=== PATIENT | female | born 1985 | race Asian ===

== ENCOUNTER 2021-02-14 03:00 | Inpatient (IN) | payer OTHER ==
[2021-02-14] MEDS ORDERED: ELECTROLYTE-148 SOLN 1,000 ML IV SCH ×2 (03:30→14:45)
[2021-02-14 05:09] VITALS: BMI 29.0
[2021-02-14 05:37] LABS: BASO % 0.2 % (0-2.0); EOS % 1.1 % (0-4.5); HEMATOCRIT 30.7 % (32.4-45.2); HEMOGLOBIN 9.8 GM/dL (10.7-15.3); LYMPH % 25.4 % (8-40); MCH 23.7 pg (25.7-33.7); MCHC 31.9 g/dl (32.0-36.0); MEAN CELL VOLUME 74.2 fl (80-96); MEAN PLT VOLUME 8.5 fl (7.5-11.1); MONO % 7.5 % (3.8-10.2); NEUT % 65.8 % (42.8-82.8); PLATELET COUNT 267 10^3/uL (134-434); RBC 4.14 M/mm3 (3.60-5.2); RDW 15.6 % (11.6-15.6); WHITE BLOOD COUNT 8.3 K/mm3 (4.0-10.0)
[2021-02-14 05:50] LABS: INR 0.97 (0.83-1.09); PROTHROMBIN TIME (PATIENT) 11.7 SEC (9.7-13.0)
[2021-02-14 05:53] LABS: ACTIVATED PTT 25.9 SECONDS (25.2-36.5)
[2021-02-14 05:57] LABS: BLOOD UREA NITROGEN 10.5 mg/dL (7-18); CALCIUM 8.3 mg/dL (8.5-10.1)
[2021-02-14 06:01] LABS: CREATININE 0.5 mg/dL (0.55-1.3)
[2021-02-14] MEDS ORDERED: DEXTROSE 5%-LACTATED RINGERS 1,000 ML IV SCH (08:45)
[2021-02-14] MEDS ORDERED: PROMETHAZINE HCL 25 MG/1 ML VIAL IVPUSH ONE (08:47)
[2021-02-14] MEDS ORDERED: BUTORPHANOL TARTRATE 1 MG/ML VIAL IVPUSH ONE (08:47)
[2021-02-14] MEDS ORDERED: OXYTOCIN 30 UNITS in 0.9% NS 30 UNIT/500 ML INFUS.BAG IVPB ONE (12:02)
[2021-02-14] MEDS ORDERED: FENTANYL/BUPIVACAINE/NS/PF - PCEA - 50 ML DISP.SYRIN EP ONE (12:21)
[2021-02-14] MEDS ORDERED: PCA PUMP NR ONE ×2 (12:21→18:23)
[2021-02-14] MEDS ORDERED: NALOXONE HCL 0.4 MG/ML VIAL IVPUSH PRN (12:34)
[2021-02-14] MEDS ORDERED: BUPIVACAINE HCL/PF 0.25% (2.5MG/ML) 10 ML VIAL ONE (12:38)
[2021-02-14] MEDS ORDERED: FENTANYL/BUPIVACAINE/NS/PF - PCEA - 50 ML DISP.SYRIN EP SCH (12:45)
[2021-02-14] MEDS ORDERED: OXYTOCIN 30 UNITS in 0.9% NS 30 UNIT/500 ML INFUS.BAG IVPB SCH (14:45)
[2021-02-14] MEDS ORDERED: OXYTOCIN 20 UNITS in 0.9% NS 20 UNIT/1,000 ML INFUS.BAG IV ONE (17:33)
[2021-02-14] MEDS ORDERED: LIDOCAINE HCL 1% PRESERVATIVE FREE - 30ML VIAL ONE (17:46)
[2021-02-14] MEDS ORDERED: BISACODYL 10 MG SUPP.RECT RC PRN (18:17)
[2021-02-14] MEDS ORDERED: BENZOCAINE 20% 57 GM BOTTLE TP PRN (18:17)
[2021-02-14] MEDS ORDERED: BENZOCAINE 28 GM HEMORRHOIDAL OINTMENT TP PRN (18:17)
[2021-02-14] MEDS ORDERED: METHYLERGONOVINE MALEATE 0.2 MG/1 ML AMP IM PRN (18:17)
[2021-02-14] MEDS ORDERED: WITCH HAZEL 50% (TUCKS) 40 PAD/JAR PAD TP PRN (18:17)
[2021-02-14] MEDS ORDERED: OXYTOCIN 20 UNITS in 0.9% NS 20 UNIT/1,000 ML INFUS.BAG IV SCH (18:30)
[2021-02-14 19:59] LABS: CORD BASE EXCESS -8.3 mmol/L (0-2); CORD HCO3 18.3 mmHg (20-29); CORD PCO2 41.3 mmHg (30-78); CORD pH 7.264 (7.14-7.44)
[2021-02-14 20:01] LABS: CORD BASE EXCESS -9.2 mmol/L (0-2); CORD HCO3 19.8 mmHg (20-29); CORD pH 7.175 (7.14-7.44)
[2021-02-15] MEDS: ACETAMINOPHEN 325 MG TABLET (FP) PO PRN ×4 (06:31→23:44)
[2021-02-15] MEDS: IBUPROFEN 600 MG TABLET (FP) PO PRN ×4 (06:32→23:44)
[2021-02-15 07:38] LABS: BASO % 0.2 % (0-2.0); EOS % 0.4 % (0-4.5); HEMATOCRIT 30.6 % (32.4-45.2); HEMOGLOBIN 9.7 GM/dL (10.7-15.3); LYMPH % 14.4 % (8-40); MCH 23.4 pg (25.7-33.7); MCHC 31.7 g/dl (32.0-36.0); MEAN CELL VOLUME 73.8 fl (80-96); MEAN PLT VOLUME 8.5 fl (7.5-11.1); MONO % 6.6 % (3.8-10.2); NEUT % 78.4 % (42.8-82.8); PLATELET COUNT 243 10^3/uL (134-434); RBC 4.14 M/mm3 (3.60-5.2); RDW 15.9 % (11.6-15.6); WHITE BLOOD COUNT 13.6 K/mm3 (4.0-10.0)
[2021-02-15] MEDS ORDERED: DIPHTH,PERTUSS(ACELL),TET 0.5 ML DISP.SYRIN IM ONE (10:00)
[2021-02-15] MEDS: FERROUS SO4 325 MG TABLET (FP) PO SCH ×2 (10:04→17:40)
[2021-02-15] MEDS: PRENATAL VITAMINS W/ FOLIC ACID TABLET (FP) PO SCH (10:04)
[2021-02-15 12:42] LABS: POC NITRAZINE POS
[2021-02-15] MEDS ORDERED: SENNOSIDES/DOCUSATE COMBO (SENNA PLUS) TABLET (UD) PO PRN (22:00)
[2021-02-16] MEDS: IBUPROFEN 600 MG TABLET (FP) PO PRN (07:07)
[2021-02-16] MEDS: ACETAMINOPHEN 325 MG TABLET (FP) PO PRN (07:08)
[2021-02-16] MEDS: FERROUS SO4 325 MG TABLET (FP) PO SCH (07:09)
[2021-02-16] MEDS: PRENATAL VITAMINS W/ FOLIC ACID TABLET (FP) PO SCH (09:24)
[2021-02-16 11:12] VITALS: BP 100/60; PULSE 75; TEMP 97.8
== END 2021-02-16 12:30 | disposition home or self-care (01) | DRG 560 ==
LOC: JLDR 03:00 → J3W 20:33
PROVIDERS: ADMIT Obstetrics & Gynecology; ATTEND Obstetrics & Gynecology
PROC: 10E0XZZ Delivery of Products of Conception, External Approach (ICD-10-PCS; principal; 2021-02-14)
DX: O80 Encounter for full-term uncomplicated delivery (principal); Z3A.38 38 weeks gestation of pregnancy; Z37.0 Single live birth
CPT/HCPCS: 36415; 36600; 59409; 80048; 82803; 83986-QW; 85025; 85610; 85730; 86780; 86850; 86900; 86901; C9803; U0003; U0005